=== PATIENT | male | born 1985 ===

== ENCOUNTER 2017-03-27 20:35 | Emergency (ER) | payer SELFPAY ==
[2017-03-27 20:37] VITALS: RESP 20; TEMP 98.7; BMI 28.1
[2017-03-27] MEDS ORDERED: Albuterol-Ipratrop 3 mg / 0.5 (3 ml) UD IH STA (20:52)
[2017-03-27] MEDS: Albuterol-Ipratrop 3 mg / 0.5 (3 ml) UD ONE ×2 (20:54→20:55)
[2017-03-27 21:19] LABS: ADD MANUAL DIFF? NO
--- NOTE | 2017-03-27 21:19 | ED PDOC ---
Arrival/HPI - General Chief Complaint: Shortness Of Breath Time Seen by Provider: 03/27/17 20:41 Historian: Patient - History of Present Illness Narrative History of Present Illness (Text): 03/27/17 21:17 A 31 year old male, with a past medical history includes Asthma, presents to the emergency room with complaints of dry cough and wheezing for the last 2 days. Patient has a history of asthma exacerbation and notes accompanying symptoms of URI. Patient denies any chest pain, headaches, dizziness, nausea, vomiting, diarrhea, or any other complaints. Time/Duration: < week (2 days) Symptom Onset: Sudden Symptom Course: Unchanged Activities at Onset: Light Context: Home Past Medical History - Provider Review Nursing Documentation Reviewed: Yes - Infectious Disease Hx of Infectious Diseases: None - Past Medical History Past Medical History: No Previous - Cardiac Hx Cardiac Disorders: No - Pulmonary Hx Asthma: Yes - Neurological Hx Neurological Disorder: No - HEENT Hx HEENT Disorder: No - Renal Hx Renal Disorder: No - Endocrine/Metabolic Hx Endocrine Disorders: No - Hematological/Oncological Hx Blood Disorders: No - Integumentary Hx Dermatological Disorder: No - Musculoskeletal/Rheumatological Hx Musculoskeletal Disorders: No - Gastrointestinal Hx Gastrointestinal Disorders: No - Genitourinary/Gynecological Hx Genitourinary Disorders: No - Psychiatric Hx Psychophysiologic Disorder: No Hx Depression: No Hx Emotional Abuse: No Hx Physical Abuse: No Hx Substance Use: No - Past Surgical History Past Surgical History: No Previous - Anesthesia Hx Anesthesia: No - Suicidal Assessment Feels Threatened In Home Enviroment: No Family/Social History - Physician Review Nursing Documentation Reviewed: Yes Family/Social History: No Known Family HX Smoking Status: Never Smoked Hx Alcohol Use: No Hx Substance Use: No Allergies/Home Meds Allergies/Adverse Reactions: Allergies No Known Allergies Allergy (Verified 04/23/16 06:28) Physical Exam - Physical Exam Narrative Physical Exam (Text): 03/27/17 21:19 - Review of Systems Constitutional: Normal. absent: Fatigue, Weight Change, Fevers Eyes: Normal ENT: Normal Respiratory: Dry cough, wheezing absent: SOB, Sputum Cardiovascular: Normal absent: Chest pain, Palpitations, Syncope Gastrointestinal: Normal absent: Abdominal pain, Diarrhea, Nausea, Vomiting Genitourinary: Normal. absent: Dysuria, Frequency, Hematuria Musculoskeletal: Normal. absent: Arthralgias, Back Pain, Neck Pain Skin: Normal Neurological: Normal absent: Focal Weakness Endocrine: Normal Hemo/Lymphatic: Normal Psychiatric: Normal - Physical exam Patient appears age appropriate, speaking full sentences without difficulty - Systems Exam Head: Present: Atraumatic, Normocephalic Pupils: Present: PERRL Extraocular Muscles: Present: EOMI Conjunctiva: Present: Normal Mouth: Present: Moist Mucous Membranes Nose: Rhinorrhea Neck: Present: Normal Range of Motion. No: MIDLINE TENDERNESS, Paraspinal Tenderness Respiratory/Chest: Present: Inspiratory and expiratory wheezing in all lung armenta. No: Respiratory Distress, Accessory Muscle Use, Tachypneic Cardiovascular: Present: Regular Rate and Rhythm, Normal S1, S2, Peripheral Pulses Present. No: Murmurs Abdomen: Present: Normal Bowel Sounds, No: Tenderness, Peritoneal Signs, Rebound, Guarding, Distention Back: Present: Normal Inspection. No: Midline Tenderness, Paraspinal Tenderness Upper Extremity: Present: Normal Inspection. No: Cyanosis, Edema Lower Extremity: Present: Normal Inspection. No: Edema Neurological: Present: GCS=15, Speech Normal, cranial nerves II through XII fully intact with no cerebellar abnormality, neuro-sensory fully intact. No focal neurological deficits. Skin: Present: Warm, Dry, Normal Color. No: Rashes Lymphatic: Present: OX3, NI, NC Psychiatric: Present: Alert, Oriented x 3, Normal Insight, Normal Concentration Vital Signs Reviewed: Yes Vital Signs Temp Pulse Resp BP Pulse Ox 03/27/17 21:56 98 H 20 154/71 H 97 03/27/17 20:37 98.7 F 102 H 20 152/99 H 94 L Temperature: Afebrile Blood Pressure: Hypertensive Pulse: Tachycardic Respiratory Rate: Normal Appearance: Positive for: Well-Appearing, Non-Toxic, Comfortable Pain Distress: None Mental Status: Positive for: Alert and Oriented X 3 - Systems Exam Mouth: Present: Moist Mucous Membranes. No: Dry, Drooling, Trismus Pharnyx: Present: Normal. No: ERYTHEMA, EXUDATE, TONSILS ENLARGED, Peritonsilar Swelling, Uvular Deviation, Muffled/Hoarse Voice, Strider Nose (External): Present: Atraumatic Nose (Internal): Present: Rhinorrhea. No: No Active Bleeding Medical Decision Making ED Course and Treatment: 03/27/17 21:23 Impression: A 31 year old male with dry cough and wheezing. Pt states this feels like his previous asthma exacerbation symptoms. Inspiratory and expiratory wheezing in all lung armenta and rhinorrhea noted on examination. Differential Diagnosis included but are not limited to: Asthma Exacerbation Plan: -- Chest X-ray -- Labs -- Duonebs & SOLU-Medrol -- Reassess and disposition Prior Visits: Notes and results from previous visits were reviewed. Patient was seen in the emergency department on 04/23/16 and has been treated with nebulizers and SOLU-Medrol. Patient was discharged home with a diagnosis of Asthma exacerbation. Progress Notes: 03/27/17 22:25 Chest xray interpreted by ED physician shows no pneumothorax, no cardiomegaly, no infiltrates pt's pre treatment peak flow 150 post treatment 450 on reevaluation, pt has faint residual wheezing, but states he feels much better and would like to be dc'd home asked for Rx for neb machine refills Pt states he understands to return to the ER right away for new or worsening symptoms or for inability to f/u with PMD or specialist as instructed. Patient states that he fully agrees with and understands discharge instructions. States that he agrees with the plan and disposition. Verbalized and repeated discharge instructions and plan. I have given the patient opportunity to ask any additional questions. - Critical Care Critical Care Minutes: 30 minutes - Lab Interpretations Lab Results: 03/27/17 21:00 03/27/17 21:00 Lab Results 03/27/17 21:00: Sodium 141, Potassium 3.8, Chloride 101, Carbon Dioxide 28, Anion Gap 16, BUN 9, Creatinine 1.3, Est GFR ( Amer) > 60, Est GFR (Non- Af Amer) > 60, Random Glucose 96, Calcium 9.7, Total Bilirubin 0.7, AST 85 H, ALT 112 H, Alkaline Phosphatase 53, Total Protein 8.1, Albumin 4.4, Globulin 3.7 , Albumin/Globulin Ratio 1.2 03/27/17 21:00: WBC 9.7, RBC 5.24, Hgb 14.2, Hct 42.7, MCV 81.5, MCH 27.1, MCHC 33.3, RDW 14.4, Plt Count 241, MPV 11.0, Gran % 48.8 L, Lymph % (Auto) 31.3, [place] % (Auto) 8.2 H, Eos % (Auto) 11.4 H, Baso % (Auto) 0.3, Gran # 4.73, Lymph # 3.0, [place] # 0.8 H, Eos # 1.1 H, Baso # 0.03 I have reviewed the lab results: Yes - RAD Interpretation Radiology Orders: 03/27/17 20:53 CHEST PORTABLE [RAD] Stat - Medication Orders Current Medication Orders: Discontinued Medications Albuterol/Ipratropium (Duoneb 3 Mg/0.5 Mg (3 Ml) Ud) Confirm Administered Dose 9 ml .ROUTE .STK-MED ONE Stop: 03/27/17 20:52 Last Admin: 03/27/17 20:55 Dose: Albuterol/Ipratropium (Duoneb 3 Mg/0.5 Mg (3 Ml) Ud) 3 ml IH STAT STA Stop: 03/27/17 20:53 Last Admin: 03/27/17 20:55 Dose: 3 ml Methylprednisolone (Solu-Medrol) 125 mg IVP STAT STA Stop: 03/27/17 20:53 Last Admin: 03/27/17 21:04 Dose: 125 mg Ondansetron HCl (Zofran Inj) Confirm Administered Dose 4 mg .ROUTE .STK-MED ONE Stop: 03/27/17 21:07 Last Admin: 03/27/17 21:12 Dose: 4 mg Comments: verbal order Dr. Arellano - Ilana Statement The provider has reviewed the documentation as recorded by the Ilana Hess Provider Scribe Attestation: All medical record entries made by the Jahairaibmauricio were at my direction and personally dictated by me. I have reviewed the chart and agree that the record accurately reflects my personal performance of the history, physical exam, medical decision making, and the department course for this patient. I have also personally directed, reviewed, and agree with the discharge instructions and disposition. Disposition/Present on Arrival - Present on Arrival Any Indicators Present on Arrival: No History of DVT/PE: No History of Uncontrolled Diabetes: No Urinary Catheter: No History of Decub. Ulcer: No History Surgical Site Infection Following: None - Disposition Have Diagnosis and Disposition been Completed?: Yes Diagnosis: Wheezing Disposition: HOME/ ROUTINE Disposition Time: 22:29 Patient Plan: Discharge Condition: GOOD Discharge Instructions (ExitCare): Wheezing (ED), Asthma (ED), Acute Bronchitis (ED) Additional Instructions: PLEASE RETURN TO THE EMERGENCY DEPARTMENT FOR NEW OR WORSENING SYMPTOMS. RETURN RIGHT AWAY IF YOU CANNOT FOLLOW UP WITH YOUR PRIMARY CARE DOCTOR, CLINIC, OR SPECIALIST IN 1-2 DAYS. Prescriptions: Albuterol 0.083% [Albuterol 0.083% Inhal Radha (2.5 mg/3 ml) UD] 2.5 mg IH Q6H PRN #30 neb PRN Reason: Wheezing Albuterol HFA [Ventolin HFA 90 mcg/actuation (8 g)] 2 puff IH Q4 #1 puff Azithromycin [Zithromax] 250 mg PO DAILY #6 tab predniSONE [predniSONE Tab] 60 mg PO DAILY #12 tab Referrals: PCP,NO [Primary Care Provider] - Follow up with primary Isabell Medel MD [Staff Provider] - Follow up with primary [facility] [Outside] - Follow up with primary Forms: WORK NOTE
[2017-03-27 21:23] LABS: BASO # 0.03 K/mm3 (0.0-2.0); BASO % 0.3 % (0.0-3.0); EOS # 1.1 (0.0-0.7); EOS % 11.4 % (1.5-5.0); GRAN # 4.73 (1.4-6.5); GRAN % 48.8 % (50.0-68.0); HEMATOCRIT 42.7 % (42.0-52.0); LYMPH % 31.3 % (22.0-35.0); MEAN CELL VOLUME 81.5 fL (80.0-105.0); MEAN CORPUSCULAR HEMOGLOBIN 27.1 pg (25.0-35.0); MEAN CORPUSCULAR HGB CONC 33.3 g/dl (31.0-37.0); MONO # 0.8 (0.1-0.6); MONO % 8.2 % (1.0-6.0); PLATELET COUNT 241 10^3/uL (120.0-450.0); RED CELL DISTRIBUTION WIDTH 14.4 % (11.5-14.5); WHITE BLOOD COUNT 9.7 10^3/ul (4.5-11.0)
[2017-03-27 21:54] LABS: ALB/GLOB RATIO 1.2 (1.1-1.8); ALKALINE PHOSPHATASE 53 U/L (38-133); ALT/SGPT 112 U/L (7-56); AST/SGOT 85 U/L (15-59); BILIRUBIN,TOTAL 0.7 mg/dL (0.2-1.3); BLOOD UREA NITROGEN 9 mg/dL (7-21); CALCIUM 9.7 mg/dL (8.4-10.5); CARBON DIOXIDE 28 mmol/L (21-33); CHLORIDE 101 mmol/L (98-107); GFR AFRICAN-AMERICAN > 60; GLUCOSE,RANDOM 96 mg/dL (70-110); POTASSIUM 3.8 mmol/L (3.6-5.0); SODIUM 141 mmol/L (132-148); TOTAL PROTEIN 8.1 g/dL (5.8-8.3)
[2017-03-27 21:57] VITALS: PULSE 98
[2017-03-27 22:32] VITALS: BP 140/90; O2SAT 99
--- NOTE | 2017-03-28 10:10 | RAD ---
HISTORY: cough COMPARISON: 05/02/14 FINDINGS: LUNGS: No active pulmonary disease. PLEURA: No significant pleural effusion identified, no pneumothorax apparent. CARDIOVASCULAR: Normal. OSSEOUS STRUCTURES: No significant abnormalities. VISUALIZED UPPER ABDOMEN: Normal. OTHER FINDINGS: None. IMPRESSION: No active disease.
== END 2017-03-27 22:43 | disposition home or self-care (01) ==
LOC: ED 20:35
DX: R06.2 Wheezing (principal)
CPT/HCPCS: 71010; 80053; 85025; 87040; 94150; 96374; 99284; J2405; J2930

== ENCOUNTER 2019-04-13 17:42 | Observation (INO) | payer OTHER ==
--- NOTE | 2019-04-13 18:08 | ED PDOC ---
Arrival/HPI - General Historian: Patient - History of Present Illness Narrative History of Present Illness (Text): 04/13/19 18:06 Pt is a 33 yo male with a PMH of asthma exacerbation who presents to the ED complaining of wheezing and shortness of breath which started last night and awoke him from sleep. Pt states he used his albuterol pump overnight, which helped minimally. He woke up this morning and had to use his pump again and went to work. At work his wheezing worsen and he had to return home. Pt tried a nebulizer treatment right before coming to the ED which only helped minimally. Pt also reports green sputum production over the last day. Denies fever, chills, or sick contacts. Time/Duration: 24 hours <Yvon Pereira - Last Filed: 04/13/19 19:47> <Olivia Dunham - Last Filed: 04/13/19 19:53> - General Chief Complaint: Respiratory Distress Time Seen by Provider: 04/13/19 18:05 Past Medical History - Infectious Disease Hx of Infectious Diseases: None - Past Medical History Past Medical History: No Previous - Cardiac Hx Cardiac Disorders: No - Pulmonary Hx Asthma: Yes - Neurological Hx Neurological Disorder: No - HEENT Hx HEENT Disorder: No - Renal Hx Renal Disorder: No - Endocrine/Metabolic Hx Endocrine Disorders: No - Hematological/Oncological Hx Blood Disorders: No - Integumentary Hx Dermatological Disorder: No - Musculoskeletal/Rheumatological Hx Musculoskeletal Disorders: No - Gastrointestinal Hx Gastrointestinal Disorders: No - Genitourinary/Gynecological Hx Genitourinary Disorders: No - Psychiatric Hx Psychophysiologic Disorder: No Hx Depression: No Hx Emotional Abuse: No Hx Physical Abuse: No Hx Substance Use: No - Past Surgical History Past Surgical History: No Previous - Anesthesia Hx Anesthesia: No - Suicidal Assessment Feels Threatened In Home Enviroment: No <Yvon Pereira - Last Filed: 04/13/19 19:47> Family/Social History Family/Social History: Diabetes, Hypertension, CAD/AL Smoking Status: Never Smoked Hx Alcohol Use: No Hx Substance Use: No <Yvon Pereira - Last Filed: 04/13/19 19:47> Allergies/Home Meds <Yvon Pereira - Last Filed: 04/13/19 19:47> <Olivia Dunham - Last Filed: 04/13/19 19:53> Allergies/Adverse Reactions: Allergies No Known Allergies Allergy (Verified 04/23/16 06:28) Review of Systems - Review of Systems Constitutional: Normal Eyes: Normal ENT: Normal Respiratory: SOB, Cough, Sputum, Wheezing Cardiovascular: Normal Gastrointestinal: Normal Musculoskeletal: Normal Skin: Normal Neurological: Normal Endocrine: Normal Hemo/Lymphatic: Normal Psychiatric: Normal <Yvon Pereiraron - Last Filed: 04/13/19 19:47> Physical Exam Vital Signs Reviewed: Yes Temperature: Afebrile Blood Pressure: Normal Pulse: Regular Respiratory Rate: Normal Appearance: Positive for: Other (wheezing ) Mental Status: Positive for: Alert and Oriented X 3 - Systems Exam Head: Present: Atraumatic, Normocephalic Pupils: Present: PERRL Extroacular Muscles: Present: EOMI Conjunctiva: Present: Normal Mouth: Present: Moist Mucous Membranes Pharnyx: Present: Normal Respiratory/Chest: Present: Wheezes. No: Clear to Auscultation Cardiovascular: Present: Regular Rate and Rhythm, Normal S1, S2 Abdomen: Present: Normal Bowel Sounds. No: Tenderness, Distention Upper Extremity: Present: Normal Inspection Lower Extremity: Present: Normal Inspection Neurological: Present: GCS=15, CN II-XII Intact Skin: Present: Warm, Dry Psychiatric: Present: Alert, Oriented x 3 <Yvon Pereiraron - Last Filed: 04/13/19 19:47> Vital Signs Temp Pulse Resp BP Pulse Ox 04/13/19 17:43 98.3 F 107 H 18 159/92 H 90 L <Olivia Dunham - Last Filed: 04/13/19 19:53> Medical Decision Making ED Course and Treatment: 04/13/19 18:17 solumedrol 125mg IVP duonebs Chest X-ray to rule out PNA 04/13/19 18:28 measure peak flow CBC CMP 04/13/19 19:35 pt has recieved 3 duonebs and IV steriods, pt lung exam continues to wheeze Peek flow calculation 33% of predicted pt improved from 103, to 200 after nebulizer Pt predicted peek flow should be 599 for his height and age Pt admitted to hospitalist service Pt seen, examined, assessment and plan discussed with Dr Roly Pereira PGY1 <Yvon Pereira - Last Filed: 04/13/19 19:47> ED Course and Treatment: 04/13/19 19:53 Patient seen by resident and then evaluated by me. Given duonebs and solumedrol and Mg and persistently wheezing. Accepted by medicine resident and Dr. Hurst to hospitalist service. - Lab Interpretations Lab Results: Total Bilirubin 0.4 mg/dL (0.2-1.3) 04/13/19 18:30 AST 135 U/L (17-59) H 04/13/19 18:30 ALT 120 U/L (7-56) H 04/13/19 18:30 Alkaline Phosphatase 57 U/L (38-126) 04/13/19 18:30 Total Protein 7.6 g/dL (5.8-8.3) 04/13/19 18:30 Albumin 4.3 g/dL (3.0-4.8) 04/13/19 18:30 Globulin 3.3 gm/dL 04/13/19 18:30 Albumin/Globulin Ratio 1.3 (1.1-1.8) 04/13/19 18:30 - RAD Interpretation Radiology Orders: 04/13/19 18:19 CXR [CHEST PORTABLE] [RAD] Stat - Medication Orders Current Medication Orders: Magnesium Sulfate/Dextrose (Magnesium Sulfate 1 Gm/100 Ml D5w) 1 gm in 100 mls @ 100 mls/hr IVPB ONCE ONE Stop: 04/13/19 20:42 Discontinued Medications Albuterol/Ipratropium (Duoneb 3 Mg/0.5 Mg (3 Ml) Ud) 3 ml IH Q15M NAMITA Stop: 04/13/19 19:01 Last Admin: 04/13/19 19:10 Dose: 3 ml Methylprednisolone (Solu-Medrol) 125 mg IVP STAT STA Stop: 04/13/19 18:21 Last Admin: 04/13/19 18:38 Dose: 125 mg IVP Administration Document 04/13/19 18:38 EQ (Rec: 04/13/19 18:38 EQ [id number]) Charges for Administration # of IVP Administrations 1 <Olivia Dunham - Last Filed: 04/13/19 19:53> - PA / STRIP PRESSER / Resident Statement MD/DO has reviewed & agrees with the documentation as recorded. / has examined the patient and agrees with the treatment plan. <Yvon Pereira - Last Filed: 04/13/19 19:47> Disposition/Present on Arrival - Present on Arrival Any Indicators Present on Arrival: No History of DVT/PE: No History of Uncontrolled Diabetes: No Urinary Catheter: No History Surgical Site Infection Following: None - Disposition Have Diagnosis and Disposition been Completed?: Yes Disposition Time: 19:46 Patient Plan: Admission <Yvon Pereira - Last Filed: 04/13/19 19:47> - Present on Arrival Any Indicators Present on Arrival: No - Disposition Have Diagnosis and Disposition been Completed?: Yes Patient Plan: Observation <Olivia Dunham - Last Filed: 04/13/19 19:53> - Disposition Diagnosis: Asthma exacerbation Disposition: HOSPITALIZED Patient Problems: Current Active Problems Problem Status Onset Asthma exacerbation Acute Condition: FAIR Referrals: PCP,NO [Primary Care Provider] - Follow up with primary Forms: [employer] (Pakistani)
[2019-04-13] MEDS: Albuterol-Ipratrop 3 mg / 0.5 (3 ml) UD IH SCH ×2 (18:38→19:10)
[2019-04-13 18:45] LABS: BASO # 0.02 K/mm3 (0.0-2.0); BASO % 0.1 % (0.0-3.0); EOS # 1.3 (0.0-0.7); EOS % 8.7 % (1.5-5.0); HEMOGLOBIN 13.5 g/dL (14.0-18.0); LYMPH # 1.3 (1.2-3.4); LYMPH % 8.9 % (22.0-35.0); MEAN CELL VOLUME 83.2 fl (80.0-105.0); MEAN CORPUSCULAR HEMOGLOBIN 26.7 pg (25.0-35.0); MEAN CORPUSCULAR HGB CONC 32.1 g/dl (31.0-37.0); MEAN PLATELET VOLUME 10.4 fl (7.0-11.0); MONO # 0.7 (0.1-0.6); MONO % 4.9 % (1.0-6.0); RBC 5.06 10^6/uL (3.5-6.1); RED CELL DISTRIBUTION WIDTH 14.8 % (11.5-14.5); WHITE BLOOD COUNT 14.4 10^3/uL (4.5-11.0)
[2019-04-13 18:50] LABS: ALB/GLOB RATIO 1.3 (1.1-1.8); ALBUMIN 4.3 g/dL (3.0-4.8); ALT/SGPT 120 U/L (7-56); AST/SGOT 135 U/L (17-59); BLOOD UREA NITROGEN 16 mg/dL (7-21); CALCIUM 9.4 mg/dL (8.4-10.5); GFR NON-AFRICAN AMERICAN > 60
[2019-04-13] MEDS ORDERED: Magnesium Sulfate 1 gm in D5W 1 GM/100 ML BAG IVPB ONE (19:43)
--- NOTE | 2019-04-13 20:24 | CARD ---
APPROVED REPORT Date of service: 04/13/2019 EKG Measurement Heart [id number] <Conclusion> Sinus tachycardia Otherwise normal ECG
[2019-04-13] MEDS ORDERED: Albuterol-Ipratrop 3 mg / 0.5 (3 ml) UD IH PRN (20:53)
--- NOTE | 2019-04-13 21:28 | CP.PCM.HP ---
<Isidro Adamson - Last Filed: 04/14/19 04:06> History of Present Illness - History of Present Illness History of Present Illness: HISTORY & PHYSICAL NOTE FOR HOSPITALIST SERVICE ISIDRO ADAMSON PGY1 33y/o M with PMH of asthma presents to ED with complaints of SOB, wheezing that started last night and awoke him from sleep. He reports he tried using his albuterol rescue inhaler at night with minimal relief. When he woke up he used the inhaler again before leaving for work. SOB was not relieved and he return home to work. He also used albuterol nebulizer at home with minimal relief. He reports he rarely uses his albuterol inhaler, around 1-2 times a month, and al most never requires using it at night or gets awakened at night from SOB. He only has albuterol, no ICS. He works as haul driver and works outside, and reports he recently has had "bronchitis" and cough/congestion for the past week without body-aches. Upon interview, he reports he feels his heart beating fast and notices the wheezing . He reports symptoms have improved significantly after receiving duoneb, magnesium and solu-medrol treatments in ED. He denies fevers, chills, headache, dizziness, numbness, tingling, chest pain, palpitations, nausea, vomiting, constipation, diarrhea, dysuria. PMH: Intermittent asthma, bronchitis All: seasonal PSH: Denies SH: Denies ever smoking, occasional ETOH, no drugs. Works outside [employer]/ [employer] [facility]: denies recent, no previous extubations FH: M: alive: HTN. F: alive: HTN, VA x 2 Meds: albuterol rescue inhaler & nebulizer PMD: none [facility] [address] [place] [address] Present on Admission - Present on Admission Any Indicators Present on Admission: No Review of Systems - Review of Systems Review of Systems: per HPI Past Patient History - Infectious Disease Hx of Infectious Diseases: None - Past Social History Smoking Status: Never Smoked - CARDIAC Hx Cardiac Disorders: No - PULMONARY Hx Asthma: Yes - NEUROLOGICAL Hx Neurological Disorder: No - HEENT Hx HEENT Problems: No - RENAL Hx Chronic Kidney Disease: No - ENDOCRINE/METABOLIC Hx Endocrine Disorders: No - HEMATOLOGICAL/ONCOLOGICAL Hx Blood Disorders: No - INTEGUMENTARY Hx Dermatological Problems: No - MUSCULOSKELETAL/RHEUMATOLOGICAL Hx Musculoskeletal Disorders: No - GASTROINTESTINAL Hx Gastrointestinal Disorders: No - GENITOURINARY/GYNECOLOGICAL Hx Genitourinary Disorders: No - PSYCHIATRIC Hx Psychophysiologic Disorder: No Hx Depression: No Hx Emotional Abuse: No Hx Physical Abuse: No Hx Substance Use: No - SURGICAL HISTORY Hx Surgeries: No - ANESTHESIA Hx Anesthesia: No Meds Allergies/Adverse Reactions: Allergies Allergy/AdvReac Type Severity Reaction Status Date / Time No Known Allergies Allergy Verified 04/23/16 06:28 Physical Exam - Constitutional Appears: Well, Non-toxic, No Acute Distress - Head Exam Head Exam: NORMAL INSPECTION, NORMOCEPHALIC - Eye Exam Eye Exam: EOMI, Normal appearance - ENT Exam ENT Exam: Mucous Membranes Moist, Normal Exam - Neck Exam Neck exam: Positive for: Normal Inspection - Respiratory Exam Respiratory Exam: Wheezes (minimal), NORMAL BREATHING PATTERN - Cardiovascular Exam Cardiovascular Exam: Tachycardia, +S1, +S2 - GI/Abdominal Exam GI & Abdominal Exam: Normal Bowel Sounds, Soft. absent: Tenderness - Extremities Exam Extremities exam: Positive for: normal inspection. Negative for: calf tenderness - Back Exam Back exam: NORMAL INSPECTION - Neurological Exam Neurological exam: Alert, Oriented x3 - Psychiatric Exam Psychiatric exam: Normal Affect, Normal Mood - Skin Skin Exam: Dry, Intact, Warm Results - Vital Signs Recent Vital Signs: Last Vital Signs Temp 98.3 F 04/13/19 17:43 Pulse 104 H 04/13/19 21:00 Resp 18 04/13/19 21:00 BP 136/86 04/13/19 21:00 Pulse Ox 94 L 04/13/19 21:00 - Labs Result Diagrams: 04/13/19 18:30 04/13/19 18:30 Labs: Laboratory Results - last 24 hr 04/13/19 04/13/19 04/13/19 18:30 18:30 18:30 WBC 14.4 H RBC 5.06 Hgb 13.5 L Hct 42.1 MCV 83.2 MCH 26.7 MCHC 32.1 RDW 14.8 H Plt Count 262 MPV 10.4 Neut % (Auto) 77.4 H Lymph % (Auto) 8.9 L [place] % (Auto) 4.9 Eos % (Auto) 8.7 H Baso % (Auto) 0.1 Lymph # (Auto) 1.3 [place] # (Auto) 0.7 H Eos # (Auto) 1.3 H Baso # (Auto) 0.02 Absolute Neuts (auto) 11.15 H Sodium 143 Potassium 3.9 Chloride 106 Carbon Dioxide 27 Anion Gap 14 BUN 16 Creatinine 1.0 Est GFR ( Amer) > 60 Est GFR (Non-Af Amer) > 60 Random Glucose 90 Calcium 9.4 Phosphorus 3.1 Magnesium 2.1 Total Bilirubin 0.4 AST 135 H ALT 120 H Alkaline Phosphatase 57 Total Protein 7.6 Albumin 4.3 Globulin 3.3 Albumin/Globulin Ratio 1.3 Assessment & Plan - Assessment and Plan (Free Text) Assessment: 33 y/o M with PMH of intermittent asthma admitted for asthma exacerbation Plan: Asthma Exacerbation -s/p 125mg solu-medrol, MgSO4 & duoneb in ED w/ improvement. No accessory muscle using, no signs of impending respiratory failure. CXR: 04/13: neg. -Duoneb Q4 NAMITA & Q2prn -Pulmicort Q12 -Solu-medrol 40Q12 -supplment O2 via NC -monitor peak flow daily DVT/GI: SCD/protonix Case reviewed with attending physician, Dr. Velia Adamson PGY1 <Pasquale Gunn - Last Filed: 04/14/19 19:28> Results - Vital Signs Recent Vital Signs: Last Vital Signs Temp 98.4 F 04/14/19 11:59 Pulse 112 H 04/14/19 14:00 Resp 20 04/14/19 11:59 BP 129/73 04/14/19 11:59 Pulse Ox 93 L 04/14/19 09:00 - Labs Result Diagrams: 04/14/19 05:50 04/14/19 05:50 Labs: Laboratory Results - last 24 hr 04/13/19 04/13/19 04/14/19 18:30 23:05 05:50 WBC 15.9 H RBC 5.28 Hgb 14.2 Hct 43.4 MCV 82.2 MCH 26.9 MCHC 32.7 RDW 15.0 H Plt Count 297 MPV 10.5 Neut % (Auto) 93.9 H Lymph % (Auto) 4.3 L [place] % (Auto) 1.7 Eos % (Auto) 0.1 L Baso % (Auto) 0.0 Lymph # (Auto) 0.7 L [place] # (Auto) 0.3 Eos # (Auto) 0.0 Baso # (Auto) 0.00 Absolute Neuts (auto) 14.95 H Neutrophils % (Manual) 90 H Band Neutrophils % 5 H Lymphocytes % (Manual) 4 L Monocytes % (Manual) 1 Platelet Evaluation Normal Sodium Potassium Chloride Carbon Dioxide Anion Gap BUN Creatinine Est GFR ( Amer) Est GFR (Non-Af Amer) Random Glucose Calcium Phosphorus 3.1 Magnesium 2.1 Total Bilirubin AST ALT Alkaline Phosphatase Total Protein Albumin Globulin Albumin/Globulin Ratio Influenza Typ A,B (EIA) Negative for flu a/b 04/14/19 05:50 WBC RBC Hgb Hct MCV MCH MCHC RDW Plt Count MPV Neut % (Auto) Lymph % (Auto) [place] % (Auto) Eos % (Auto) Baso % (Auto) Lymph # (Auto) [place] # (Auto) Eos # (Auto) Baso # (Auto) Absolute Neuts (auto) Neutrophils % (Manual) Band Neutrophils % Lymphocytes % (Manual) Monocytes % (Manual) Platelet Evaluation Sodium 140 Potassium 4.4 Chloride 104 Carbon Dioxide 26 Anion Gap 14 BUN 11 Creatinine 0.7 L Est GFR ( Amer) > 60 Est GFR (Non-Af Amer) > 60 Random Glucose 155 H Calcium 9.5 Phosphorus 1.9 L Magnesium 2.0 Total Bilirubin 0.4 AST 97 H D ALT 113 H Alkaline Phosphatase 62 Total Protein 8.0 Albumin 4.5 Globulin 3.6 Albumin/Globulin Ratio 1.3 Influenza Typ A,B (EIA) Attending/Attestation - Attestation I have personally seen and examined this patient.: Yes I have fully participated in the care of the patient.: Yes I have reviewed all pertinent clinical information: Yes Notes (Text): 04/14/19 19:28 Seen and examined. Discussed with resident. A&P as above.
[2019-04-13] MEDS ORDERED: MethylPREDNISolone 40 mg Vial IVP SCH (22:00)
[2019-04-13 23:13] VITALS: BMI 33.0
[2019-04-14] MEDS: Albuterol-Ipratrop 3 mg / 0.5 (3 ml) UD IH SCH ×4 (00:10→11:31)
[2019-04-14 06:10] LABS: EOS % 0.1 % (1.5-5.0); HEMOGLOBIN 14.2 g/dL (14.0-18.0); LYMPH # 0.7 (1.2-3.4); LYMPH % 4.3 % (22.0-35.0); MEAN CELL VOLUME 82.2 fl (80.0-105.0); MEAN CORPUSCULAR HEMOGLOBIN 26.9 pg (25.0-35.0); MEAN CORPUSCULAR HGB CONC 32.7 g/dl (31.0-37.0); MEAN PLATELET VOLUME 10.5 fl (7.0-11.0); MONO # 0.3 (0.1-0.6); MONO % 1.7 % (1.0-6.0); PLATELET COUNT 297 10^3/uL (120.0-450.0); RBC 5.28 10^6/uL (3.5-6.1); WHITE BLOOD COUNT 15.9 10^3/uL (4.5-11.0)
[2019-04-14 06:48] LABS: BAND 5 % (0-2); LYMPHOCYTE 4 % (22.0-35.0); MONOCYTE 1 % (1.0-6.0); NEUTROPHIL 90 % (50.0-70.0); PLATELET ESTIMATE NORMAL (NORMAL)
[2019-04-14 06:56] LABS: ALB/GLOB RATIO 1.3 (1.1-1.8); ALBUMIN 4.5 g/dL (3.0-4.8); ALT/SGPT 113 U/L (7-56); AST/SGOT 97 U/L (17-59); BLOOD UREA NITROGEN 11 mg/dL (7-21); CALCIUM 9.5 mg/dL (8.4-10.5); GFR NON-AFRICAN AMERICAN > 60
[2019-04-14] MEDS ORDERED: Budesonide 0.5 mg/2 ml Inhal Susp UD IH SCH (08:00)
[2019-04-14] MEDS ORDERED: Potassium & Sodium Phosphate PO ONE (08:13)
--- NOTE | 2019-04-14 08:27 | RAD ---
Date of service: 04/13/2019 HISTORY: rule out PNA COMPARISON: 03/27/2017 TECHNIQUE: 1 view obtained. FINDINGS: LUNGS: No active pulmonary disease. PLEURA: No significant pleural effusion identified, no pneumothorax apparent. CARDIOVASCULAR: No aortic atherosclerotic calcification present. Normal cardiac size. No pulmonary vascular congestion. OSSEOUS STRUCTURES: No significant abnormalities. VISUALIZED UPPER ABDOMEN: Normal. OTHER FINDINGS: None. IMPRESSION: No active disease.
[2019-04-14 09:18] VITALS: O2SAT 93
[2019-04-14] MEDS ORDERED: MethylPREDNISolone 40 mg Vial IVP SCH (10:00)
[2019-04-14 12:00] VITALS: BP 129/73; RESP 20; TEMP 98.4
[2019-04-14] MEDS ORDERED: MethylPREDNISolone 40 mg Vial IVP ONE (14:54)
[2019-04-14 15:17] VITALS: PULSE 112
--- NOTE | 2019-04-14 18:25 | CP.PCM.DIS ---
<Kodak Carter - Last Filed: 04/14/19 18:26> Provider - Provider Date of Admission: 04/13/19 19:51 Attending physician: Myra Sebastian MD Primary care physician: NO PRIMARY CARE PROVIDER Time Spent in preparation of Discharge (in minutes): 35 Diagnosis - Discharge Diagnosis (1) Asthma exacerbation Status: Acute (2) Bronchitis Status: Acute Hospital Course - Lab Results Lab Results: Most Recent Lab Values WBC 15.9 10^3/uL (4.5-11.0) H 04/14/19 05:50 RBC 5.28 10^6/uL (3.5-6.1) 04/14/19 05:50 Hgb 14.2 g/dL (14.0-18.0) 04/14/19 05:50 Hct 43.4 % (42.0-52.0) 04/14/19 05:50 MCV 82.2 fl (80.0-105.0) 04/14/19 05:50 MCH 26.9 pg (25.0-35.0) 04/14/19 05:50 MCHC 32.7 g/dl (31.0-37.0) 04/14/19 05:50 RDW 15.0 % (11.5-14.5) H 04/14/19 05:50 Plt Count 297 10^3/uL (120.0-450.0) 04/14/19 05:50 MPV 10.5 fl (7.0-11.0) 04/14/19 05:50 Neut % (Auto) 93.9 % (50.0-68.0) H 04/14/19 05:50 Lymph % (Auto) 4.3 % (22.0-35.0) L 04/14/19 05:50 [place] % (Auto) 1.7 % (1.0-6.0) 04/14/19 05:50 Eos % (Auto) 0.1 % (1.5-5.0) L 04/14/19 05:50 Baso % (Auto) 0.0 % (0.0-3.0) 04/14/19 05:50 Lymph # (Auto) 0.7 (1.2-3.4) L 04/14/19 05:50 [place] # (Auto) 0.3 (0.1-0.6) 04/14/19 05:50 Eos # (Auto) 0.0 (0.0-0.7) 04/14/19 05:50 Baso # (Auto) 0.00 K/mm3 (0.0-2.0) 04/14/19 05:50 Absolute Neuts (auto) 14.95 (1.4-6.5) H 04/14/19 05:50 Neutrophils % (Manual) 90 % (50.0-70.0) H 04/14/19 05:50 Band Neutrophils % 5 % (0-2) H 04/14/19 05:50 Lymphocytes % (Manual) 4 % (22.0-35.0) L 04/14/19 05:50 Monocytes % (Manual) 1 % (1.0-6.0) 04/14/19 05:50 Platelet Evaluation Normal (NORMAL) 04/14/19 05:50 Sodium 140 mmol/L (132-148) 04/14/19 05:50 Potassium 4.4 mmol/L (3.6-5.0) 04/14/19 05:50 Chloride 104 mmol/L (98-107) 04/14/19 05:50 Carbon Dioxide 26 mmol/L (21-33) 04/14/19 05:50 Anion Gap 14 (10-20) 04/14/19 05:50 BUN 11 mg/dL (7-21) 04/14/19 05:50 Creatinine 0.7 mg/dl (0.8-1.5) L 04/14/19 05:50 Est GFR ( Amer) > 60 04/14/19 05:50 Est GFR (Non-Af Amer) > 60 04/14/19 05:50 Random Glucose 155 mg/dL (70-110) H 04/14/19 05:50 Calcium 9.5 mg/dL (8.4-10.5) 04/14/19 05:50 Phosphorus 1.9 mg/dL (2.5-4.5) L 04/14/19 05:50 Magnesium 2.0 mg/dL (1.7-2.2) 04/14/19 05:50 Total Bilirubin 0.4 mg/dL (0.2-1.3) 04/14/19 05:50 AST 97 U/L (17-59) H D 04/14/19 05:50 ALT 113 U/L (7-56) H 04/14/19 05:50 Alkaline Phosphatase 62 U/L (38-126) 04/14/19 05:50 Total Protein 8.0 g/dL (5.8-8.3) 04/14/19 05:50 Albumin 4.5 g/dL (3.0-4.8) 04/14/19 05:50 Globulin 3.6 gm/dL 04/14/19 05:50 Albumin/Globulin Ratio 1.3 (1.1-1.8) 04/14/19 05:50 Influenza Typ A,B (EIA) Negative for flu a/b (NEGATIVE) 04/13/19 23:05 - Hospital Course Hospital Course: Kodak Carter DO, PGY-1 Hospitalist Discharge Summary for Dr. Sebastian Prior to admission: Patient is a 33 year old male with PMH of mild, persistent asthma (normally controlled with ventolin rescue inhaler alone) presented to ED yesterday evening with a complaint of SOB and wheezing which awoke him from sleep. He admitted to a recent bout of acute bronchitis which he believes may have triggered this episode. He was given IV solumedrol and duo-neb treatments in ED and was subsequently admitted for management of acute asthma exacerbation. Hospitalization course: Patient was treated with IV solumedrol 40 q12h and with scheduled and PRN duo-neb treatments. Patient was noted to be persistently tachycardic which was suspected to be 2/2 duo-neb treatments. On examination this AM, patient still had persistent wheezes and decreased breath sounds b/l. It was recommended that he stay an additional day for continued treatments. However, patient wished to sign out against medical advice. The risks of signing out against medical advice were explained in detail to patient who continued to wish to sign out. Prescriptions were given for advair, solu-medrol, and zithromax prior to patient signing out. Patient seen, examined with, and discharge plan confirmed with my attending, Dr. Jaz Carter DO IM Resident PGY-1 Discharge Exam - Head Exam Head Exam: NORMAL INSPECTION, NORMOCEPHALIC - Eye Exam Eye Exam: EOMI, PERRL - ENT Exam ENT Exam: Mucous Membranes Moist - Neck Exam Neck exam: Full Rom - Respiratory Exam Respiratory Exam: Decreased Breath Sounds (poor air movement b/l reflecting acute asthma exacerbation), Wheezes (b/l wheezes improved with duo-neb treatment). absent: Accessory Muscle Use, Rales, Rhonchi, Respiratory Distress - Cardiovascular Exam Cardiovascular Exam: Tachycardia, +S1, +S2. absent: Diastolic murmur, Gallop, Rubs, Systolic Murmur - GI/Abdominal Exam GI & Abdominal Exam: Normal Bowel Sounds, Soft, Unremarkable. absent: Tenderness - Extremities Exam Extremities exam: full ROM, normal inspection - Back Exam Back exam: NORMAL INSPECTION - Neurological Exam Neurological exam: Alert, Oriented x3 - Psychiatric Exam Psychiatric exam: Normal Affect, Normal Mood - Skin Skin Exam: Dry, Intact, Warm Discharge Plan - Discharge Medications Prescriptions: Azithromycin [Zithromax] See Taper PO DAILY #6 tab Fluticasone/Salmeterol 250/50 [Advair Diskus] 1 puff IH Q12 #1 inhaler Methylprednisolone [Medrol Dose Pack (21 tabs)] See Taper PO DAILY #21 mg - Follow Up Plan Condition: FAIR Disposition: AGAINST MEDICAL ADVICE Instructions: Asthma (DC), Asthma (GEN) Additional Instructions: -Please follow up with the [facility] on April 18 at 4:30pm with Dr. Funes. An appointment has been made for you. -Please fill the medications prescribed to you and take as directed -Please follow up as an outpatient with pulmonary consult for pulmonary function testing -RETURN TO THE EMERGENCY ROOM SHOULD YOUR CONDITION WORSEN OR CHANGE IN SEVERITY Referrals: PCP,NO [Primary Care Provider] - <Myra Sebastian - Last Filed: 04/15/19 15:07> Provider - Provider Date of Admission: 04/13/19 19:51 Attending physician: Myra Sebastian MD Primary care physician: NO PRIMARY CARE PROVIDER Hospital Course - Lab Results Lab Results: Most Recent Lab Values WBC 15.9 10^3/uL (4.5-11.0) H 04/14/19 05:50 RBC 5.28 10^6/uL (3.5-6.1) 04/14/19 05:50 Hgb 14.2 g/dL (14.0-18.0) 04/14/19 05:50 Hct 43.4 % (42.0-52.0) 04/14/19 05:50 MCV 82.2 fl (80.0-105.0) 04/14/19 05:50 MCH 26.9 pg (25.0-35.0) 04/14/19 05:50 MCHC 32.7 g/dl (31.0-37.0) 04/14/19 05:50 RDW 15.0 % (11.5-14.5) H 04/14/19 05:50 Plt Count 297 10^3/uL (120.0-450.0) 04/14/19 05:50 MPV 10.5 fl (7.0-11.0) 04/14/19 05:50 Neut % (Auto) 93.9 % (50.0-68.0) H 04/14/19 05:50 Lymph % (Auto) 4.3 % (22.0-35.0) L 04/14/19 05:50 [place] % (Auto) 1.7 % (1.0-6.0) 04/14/19 05:50 Eos % (Auto) 0.1 % (1.5-5.0) L 04/14/19 05:50 Baso % (Auto) 0.0 % (0.0-3.0) 04/14/19 05:50 Lymph # (Auto) 0.7 (1.2-3.4) L 04/14/19 05:50 [place] # (Auto) 0.3 (0.1-0.6) 04/14/19 05:50 Eos # (Auto) 0.0 (0.0-0.7) 04/14/19 05:50 Baso # (Auto) 0.00 K/mm3 (0.0-2.0) 04/14/19 05:50 Absolute Neuts (auto) 14.95 (1.4-6.5) H 04/14/19 05:50 Neutrophils % (Manual) 90 % (50.0-70.0) H 04/14/19 05:50 Band Neutrophils % 5 % (0-2) H 04/14/19 05:50 Lymphocytes % (Manual) 4 % (22.0-35.0) L 04/14/19 05:50 Monocytes % (Manual) 1 % (1.0-6.0) 04/14/19 05:50 Platelet Evaluation Normal (NORMAL) 04/14/19 05:50 Sodium 140 mmol/L (132-148) 04/14/19 05:50 Potassium 4.4 mmol/L (3.6-5.0) 04/14/19 05:50 Chloride 104 mmol/L (98-107) 04/14/19 05:50 Carbon Dioxide 26 mmol/L (21-33) 04/14/19 05:50 Anion Gap 14 (10-20) 04/14/19 05:50 BUN 11 mg/dL (7-21) 04/14/19 05:50 Creatinine 0.7 mg/dl (0.8-1.5) L 04/14/19 05:50 Est GFR ( Amer) > 60 04/14/19 05:50 Est GFR (Non-Af Amer) > 60 04/14/19 05:50 Random Glucose 155 mg/dL (70-110) H 04/14/19 05:50 Calcium 9.5 mg/dL (8.4-10.5) 04/14/19 05:50 Phosphorus 1.9 mg/dL (2.5-4.5) L 04/14/19 05:50 Magnesium 2.0 mg/dL (1.7-2.2) 04/14/19 05:50 Total Bilirubin 0.4 mg/dL (0.2-1.3) 04/14/19 05:50 AST 97 U/L (17-59) H D 04/14/19 05:50 ALT 113 U/L (7-56) H 04/14/19 05:50 Alkaline Phosphatase 62 U/L (38-126) 04/14/19 05:50 Total Protein 8.0 g/dL (5.8-8.3) 04/14/19 05:50 Albumin 4.5 g/dL (3.0-4.8) 04/14/19 05:50 Globulin 3.6 gm/dL 04/14/19 05:50 Albumin/Globulin Ratio 1.3 (1.1-1.8) 04/14/19 05:50 Influenza Typ A,B (EIA) Negative for flu a/b (NEGATIVE) 04/13/19 23:05 Attending/Attestation - Attestation I have personally seen and examined this patient.: Yes I have fully participated in the care of the patient.: Yes I have reviewed all pertinent clinical information, including history, physical exam and plan: Yes Notes (Text): 04/15/19 15:02 Attending note: Patient seen and examined with resident by the bedside. feeling better. wheezing is improving. denies any fever, chills. Patient is a 33 year old female with PMH of asthma presents to ED with complaints of SOB, wheezing that started last night and awoke him from sleep. He reports he tried using his albuterol rescue inhaler at night with minimal relief. 1. Acute asthma exacerbation; continue DuoNeb and Pulmicort. Continue IV steroids. Wheezing and shortness of breath is improving. Tachycardia is resolving. Monitor peak flow closely. Denies history of smoking. Addendum; Patient signed AGAINST MEDICAL ADVICE. Pres[place] given [facility]. 04/15/19 15:07
[2019-04-15] MEDS ORDERED: Pantoprazole 40 mg EC Tab PO SCH (07:30)
== END 2019-04-14 15:51 | disposition left against medical advice (07) ==
LOC: ED 17:42 → ERH 19:51 → 2RNO 21:10
PROVIDERS: ADMIT Internal Medicine; ATTEND Internal Medicine
DX: J45.31 Mild persistent asthma with (acute) exacerbation (principal); Z82.49 Family history of ischemic heart disease and other diseases of the circulatory system
CPT/HCPCS: 36415; 71045; 80053; 83735; 84100; 85025; 87804; 93005; 94150; 94640; 96374; 99283; C9113; G0378; J2920; J2930; J3475